=== PATIENT | female | born 2000 | race Caucasian/White ===

== ENCOUNTER 2023-10-10 08:00 | Outpatient (CLI) | payer OTHER ==
[2023-10-10 16:50] LABS: BILIRUBIN,URINE NEGATIVE (NEGATIVE); GLUCOSE, URINE (UA) NEGATIVE (NEGATIVE); KETONES,URINE (UA) TRACE mg/dL (NEGATIVE); LEUKOCYTE ESTERASE, URINE SMALL (NEGATIVE); NITRITE,URINE NEGATIVE (NEGATIVE); OCCULT BLOOD,URINE NEGATIVE (NEGATIVE); PH,URINE 6.5 PH (5.0-7.5); PROTEIN,URINE NEGATIVE (NEGATIVE); UROBILINOGEN,URINE 1 (NORMAL) E.U./dL (NORMAL)
[2023-10-10 17:04] LABS: CLARITY,URINE CLEAR (CLEAR)
[2023-10-10 17:13] LABS: RBC,URINE 0-5 /HPF (0-5)
[2023-10-10 17:14] LABS: BACTERIA,URINE Few /HPF (None Seen); SQUAMOUS EPITHELIAL CELL,UR MOD Squamous (<= Few)
== END 2023-10-10 23:59 | disposition home or self-care (01) ==
LOC: LAB 08:00
PROVIDERS: ATTEND Nurse Practitioner
DX: Z34.90 Encounter for supervision of normal pregnancy, unspecified, unspecified trimester (principal)
CPT/HCPCS: 81001; 87086

== ENCOUNTER 2023-10-20 19:13 | Outpatient (CLI) | payer OTHER ==
--- NOTE | 2023-10-21 07:50 | Ultrasound Report ---
PROCEDURE: OB First Trimester INDICATIONS: POSITIVE TEST OUTSIDE/PRIOR DATING DATA: Last menstrual period (LMP): 07/14/2023. LMP-based estimated date of delivery (BETTY): 04/19/2024. Estimated date of delivery (BETTY) from first dating scan: Today's exam. The below data below was generated using the ultrasound BETTY of 04/16/2024 TECHNIQUE: Real-time scanning was performed of the fetus, with image documentation and biometric measurements. Endovaginal scanning: Not performed. COMPARISON: None. FINDINGS: General: A single living intrauterine gestation is present. Presentation: Variable Placenta: Placental position is posterior, without previa. heart rate: 145 beats per minute. Maternal cervical canal: 3.5 cm long; normal length is 2.5 cm or more. biometrics: Biparietal diameter: 8.0 cm, 14 weeks 0 days, 51st percentile Head circumference: 2.72 cm, 14 weeks 6 days, 78th percentile Abdominal circumference: 10 cm, 14 weeks 5 days, 65th percentile Femur length: 1.4 cm, 14 weeks, 46th percentile Estimated gestational age from initial scan: 14 weeks 3 days Composite gestational age from present scan: 14 weeks 3 days Estimated weight and percentile: 94 g, 53rd percentile Measurement variability in biometric dating: +/- 10 days from 12-20 weeks gestation, +/- 2 weeks from 20-30 weeks gestation, +/- 3 weeks at 30 weeks gestation or more. Other: Not applicable. IMPRESSION: Single living intrauterine at 14 weeks 3 days, BETTY of 04/16/2024. Biometry as above. Estimated weight of 94 g, 53rd percentile. Reviewed by: Temo Salazar MD on 10/21/2023 7:49 AM [facility] Approved by: Temo Salazar MD on 10/21/2023 7:49 AM PST Station ID: [id number]
== END 2023-10-20 19:14 | disposition home or self-care (01) ==
LOC: DI 19:13
PROVIDERS: ATTEND Nurse Practitioner
DX: Z34.91 Encounter for supervision of normal pregnancy, unspecified, first trimester (principal)

== ENCOUNTER 2023-10-27 17:19 | Emergency (ER) | payer OTHER ==
[2023-10-27 17:56] LABS: BASOPHILS % (AUTO) 0.5 %; EOSINOPHILS # (AUTO) 0.1 10^3/uL (0.0-0.7); EOSINOPHILS % (AUTO) 0.8 %; HCT - HEMATOCRIT 29.7 % (37.0-47.0); HGB - HEMOGLOBIN 10.2 g/dL (12.0-16.0); LYMPHOCYTES # (AUTO) 1.8 10^3/uL (1.5-3.5); LYMPHOCYTES % (AUTO) 21.8 %; MEAN CORPUSCULAR HEMOGLOBIN 27.3 pg (27.0-31.0); MEAN CORPUSCULAR HGB CONC 34.3 g/dL (32.0-36.0); MEAN CORPUSCULAR VOLUME 79.6 fL (81.0-99.0); MEAN PLATELET VOLUME 8.5 fL (7.9-10.8); MONOCYTES # (AUTO) 0.5 10^3/uL (0.0-1.0); MONOCYTES % (AUTO) 6.3 %; NEUTROPHILS # (AUTO) 5.8 10^3/uL (1.5-6.6); NEUTROPHILS % (AUTO) 70.4 %; PLT - PLATELET COUNT 265 10^3/uL (130-450); RED BLOOD COUNT 3.73 10^6/uL (4.20-5.40); RED CELL DISTRIBUTION WIDTH 13.6 % (12.0-15.0); WHITE BLOOD COUNT 8.3 x10^3/uL (4.8-10.8)
[2023-10-27 18:03] LABS: ALBUMIN 3.6 g/dL (3.2-5.5); ALBUMIN/GLOBULIN RATIO 1.2 (1.0-2.2); BILIRUBIN,TOTAL 0.2 mg/dL (0.2-1.0); CALCIUM 9.3 mg/dL (8.5-10.3); CREATININE 0.5 mg/dL (0.6-1.3); POTASSIUM 3.4 mmol/L (3.5-4.5); TOTAL PROTEIN 6.7 g/dL (6.4-8.9)
--- NOTE | 2023-10-27 20:19 | Ultrasound Report ---
PROCEDURE: OB Limited INDICATIONS: Vaginal Bleeding OUTSIDE/PRIOR DATING DATA: Last menstrual period (LMP): 07/14/2023. LMP-based estimated date of delivery (BETTY): 04/19/2024. First dating scan (date and location): 10/20/2023. Estimated date of delivery (BETTY) from first dating scan: 04/16/2024. The below data below was generated using the ultrasound BETTY of 04/16/2024 TECHNIQUE: Real-time scanning was performed of the fetus, with image documentation. Endovaginal scanning: Not performed COMPARISON: OB ultrasound 10/20/2023 FINDINGS: A single living intrauterine gestation is present. Presentation: Variable Placenta: Placental position is anterior. Amniotic fluid index: Not evaluated. heart rate: 148 beats per minutes. Maternal cervical canal: 4.6 cm long; normal length is 2.5 cm or more. Estimated gestational age from initial scan: 15 weeks 3 days. IMPRESSION: Single live intrauterine is seen. heart rate is 148 bpm. Reviewed by: David Hugo MD on 10/27/2023 8:17 PM PST Approved by: David Hugo MD on 10/27/2023 8:17 PM PST Station ID: [id number]
--- NOTE | 2023-10-27 21:06 | ED Physician Documentation ---
PD HPI FEMALE - Stated complaint Stated Complaint: /BLEEDING - Chief complaint Chief Complaint: Abd Pain - History obtained from History obtained from: Patient - Additional information Additional information: 23-year-old female who is approximately 15 weeks presents with vaginal spotting. She noticed today while wiping. No bleeding in between. She has no dysuria urgency or frequency no abdominal pain or cramping. She has had a first trimester ultrasound which was normal. 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 She denied fever or chills, no flank pain, no nausea or vomiting. Review of Systems Constitutional: reports: Reviewed and negative Cardiac: reports: Reviewed and negative Respiratory: reports: Reviewed and negative GI: reports: Reviewed and negative : reports: Vaginal bleeding, Now EGA PD PAST MEDICAL HISTORY - Past Medical History Past Medical History: No - Past Surgical History Past Surgical History: No - Allergies Allergies/Adverse Reactions: Allergies Allergy/AdvReac Type Severity Reaction Status Date / Time No Known Drug Allergies Allergy Verified 10/27/23 17:28 - Social History Does the pt smoke?: No Smoking Status: Never smoker PD ED PE NORMAL - Vitals Vital signs reviewed: Yes - General General: Alert and oriented X 3, No acute distress, Well developed/nourished - HEENT HEENT: Atraumatic, Moist mucous membranes - Cardiac Cardiac: RRR, No murmur - Abdomen Abdomen: Normal bowel sounds, Soft, Non tender, Non distended - Back Back: No CVA TTP, No spinal TTP Results - Vitals Vitals: Vital Signs - 24 hr 10/27/23 10/27/23 10/27/23 17:25 19:28 21:00 Temperature 36.6 C 36.6 C Heart Rate 77 72 70 Respiratory 18 16 16 Rate Blood Pressure 110/54 L 112/60 110/62 O2 Saturation 99 100 100 Oxygen O2 Source Room air - Labs Labs: Laboratory Tests 10/27/23 10/27/23 10/27/23 17:38 17:38 17:40 WBC 8.3 RBC 3.73 L Hgb 10.2 L Hct 29.7 L MCV 79.6 L MCH 27.3 MCHC 34.3 RDW 13.6 Plt Count 265 MPV 8.5 Neut # (Auto) 5.8 Lymph # (Auto) 1.8 [place] # (Auto) 0.5 Eos # (Auto) 0.1 Baso # (Auto) 0.0 Absolute Nucleated RBC 0.00 Nucleated RBC % 0.0 Sodium 135 Potassium 3.4 L Chloride 105 Carbon Dioxide 25 Anion Gap 5.0 L BUN 5 L Creatinine 0.5 L Estimated GFR (MDRD) 152 Glucose 99 Calcium 9.3 Total Bilirubin 0.2 AST 12 ALT 7 L Alkaline Phosphatase 43 Total Protein 6.7 Albumin 3.6 Globulin 3.1 Albumin/Globulin Ratio 1.2 Lipase 32 Urine Color Urine Clarity Urine pH Ur Specific [place] Urine Protein Urine Glucose (UA) Urine Ketones Urine Occult Blood Urine Nitrite Urine Bilirubin Urine Urobilinogen Ur Leukocyte Esterase Urine RBC Urine WBC Ur Squamous Epith Cells Urine Bacteria Ur Microscopic Review Urine Culture Comments Blood Type A POSITIVE 10/27/23 20:52 WBC RBC Hgb Hct MCV MCH MCHC RDW Plt Count MPV Neut # (Auto) Lymph # (Auto) [place] # (Auto) Eos # (Auto) Baso # (Auto) Absolute Nucleated RBC Nucleated RBC % Sodium Potassium Chloride Carbon Dioxide Anion Gap BUN Creatinine Estimated GFR (MDRD) Glucose Calcium Total Bilirubin AST ALT Alkaline Phosphatase Total Protein Albumin Globulin Albumin/Globulin Ratio Lipase Urine Color YELLOW Urine Clarity CLEAR Urine pH 6.0 Ur Specific [place] 1.025 Urine Protein NEGATIVE Urine Glucose (UA) NEGATIVE Urine Ketones TRACE Urine Occult Blood NEGATIVE Urine Nitrite NEGATIVE Urine Bilirubin NEGATIVE Urine Urobilinogen 1 (NORMAL) Ur Leukocyte Esterase SMALL H Urine RBC None Seen Urine WBC 0-3 Ur Squamous Epith Cells FEW Squamous Urine Bacteria Rare Ur Microscopic Review INDICATED Urine Culture Comments INDICATED Blood Type - Rads (name of study) No standard instances Relevant Findings:: Final report received PD Medical Decision Making - ED course Complexity details: reviewed results, re-evaluated patient, considered christopher hector d/w patient, d/w family ED course: 23-year-old female presents with vaginal spotting in the second trimester of . Patient has had a normal thus far, presents with vaginal spotting today, no abdominal pain or cramping. Differentials considered included miscarriage, subchorionic hemorrhage, UTI, or other causes of second trimester bleeding. Patient is well-appearing here on physical exam, hemodynamically stable and afebrile with a soft abdomen. I ultrasound was done prior to my examination of the patient ultrasound reveals a single live IUP, no concerning findings on the ultrasound. Her labs are stable, she is mildly anemic and otherwise reassuring labs. Urinalysis is not suggestive of infection and therefore patient to be discharged home with recommendation to follow-up with OB outpatient. I discussed the potential causes of second trimester bleeding including intercourse, small subchorionic hemorrhage, impending miscarriage. I advised patient of return precautions andAdvise follow-up with PCP and OB in the next week or 2. Departure - Departure Disposition: 01 Home, Self Care Clinical Impression: Vaginal bleeding before 22 weeks gestation Condition: Good Instructions: Preg 2nd Trimester Comments: Your workup today was stable. Please call your OB tomorrow to schedule a follow- up appointment. If you have increasing bleeding, return to the ER otherwise continue your routine care. Forms: PCP List Discharge Date/Time: 10/27/23 21:47
[2023-10-27 21:08] LABS: BILIRUBIN,URINE NEGATIVE (NEGATIVE); GLUCOSE, URINE (UA) NEGATIVE (NEGATIVE); KETONES,URINE (UA) TRACE mg/dL (NEGATIVE); LEUKOCYTE ESTERASE, URINE SMALL (NEGATIVE); NITRITE,URINE NEGATIVE (NEGATIVE); OCCULT BLOOD,URINE NEGATIVE (NEGATIVE); PROTEIN,URINE NEGATIVE (NEGATIVE); UROBILINOGEN,URINE 1 (NORMAL) E.U./dL (NORMAL)
[2023-10-27 21:09] VITALS: BP 110/62; O2SAT 100
[2023-10-27 21:35] LABS: CLARITY,URINE CLEAR (CLEAR)
[2023-10-27 21:38] LABS: BACTERIA,URINE Rare /HPF (None Seen); RBC,URINE None Seen /HPF (0-5); SQUAMOUS EPITHELIAL CELL,UR FEW Squamous (<= Few); WBC,URINE 0-3 /HPF (0-5)
== END 2023-10-27 21:47 | disposition home or self-care (01) ==
LOC: ED 17:19
DX: O20.9 Hemorrhage in early pregnancy, unspecified (principal); Z3A.15 15 weeks gestation of pregnancy
CPT/HCPCS: 36415; 80053; 81001; 81003; 83690; 85025; 86900; 86901; 87086; 99283; 99284

== ENCOUNTER 2023-11-08 08:00 | Outpatient (CLI) | payer OTHER ==
[2023-11-09 12:40] LABS: CHLAMYDIA TRACHOMATIS DNA NEGATIVE (NEGATIVE); NEISSERIA GONORRHOEAE DNA NEGATIVE (NEGATIVE); TRICHOMONAS VAGINALIS DNA NEGATIVE (NEGATIVE)
== END 2023-11-08 23:59 | disposition home or self-care (01) ==
LOC: LAB.WC 08:00
PROVIDERS: ATTEND Obstetrics & Gynecology
DX: Z11.3 Encounter for screening for infections with a predominantly sexual mode of transmission (principal)
CPT/HCPCS: 87491; 87591; 87661

== ENCOUNTER 2023-12-01 14:41 | Outpatient (CLI) | payer OTHER ==
[2023-12-01 15:29] LABS: BASOPHILS % (AUTO) 0.2 %; EOSINOPHILS # (AUTO) 0.1 10^3/uL (0.0-0.7); EOSINOPHILS % (AUTO) 0.6 %; HCT - HEMATOCRIT 26.3 % (37.0-47.0); HGB - HEMOGLOBIN 8.7 g/dL (12.0-16.0); LYMPHOCYTES # (AUTO) 1.7 10^3/uL (1.5-3.5); LYMPHOCYTES % (AUTO) 19.1 %; MEAN CORPUSCULAR HEMOGLOBIN 28.2 pg (27.0-31.0); MEAN CORPUSCULAR HGB CONC 33.1 g/dL (32.0-36.0); MEAN CORPUSCULAR VOLUME 85.4 fL (81.0-99.0); MEAN PLATELET VOLUME 8.4 fL (7.9-10.8); MONOCYTES # (AUTO) 0.5 10^3/uL (0.0-1.0); MONOCYTES % (AUTO) 5.2 %; NEUTROPHILS # (AUTO) 6.7 10^3/uL (1.5-6.6); NEUTROPHILS % (AUTO) 74.3 %; PLT - PLATELET COUNT 248 10^3/uL (130-450); RED BLOOD COUNT 3.08 10^6/uL (4.20-5.40); RED CELL DISTRIBUTION WIDTH 14.6 % (12.0-15.0); WHITE BLOOD COUNT 9.1 x10^3/uL (4.8-10.8)
[2023-12-01 16:05] LABS: FERRITIN 16.2 ng/mL (11.0-306.8)
[2023-12-02 02:11] LABS: HBsAG SCREEN Negative (Negative)
[2023-12-02 05:15] LABS: HCV AB Non Reactive (Non Reactive); HIV SCREEN 4TH GENERATION Non Reactive (Non Reactive); RPR Non Reactive (Non Reactive)
[2023-12-02 09:11] LABS: VARICELLA-ZOSTER AB IGG 818 index (Immune >165)
== END 2023-12-01 14:42 | disposition home or self-care (01) ==
LOC: LAB 14:41
PROVIDERS: ATTEND Nurse Practitioner
DX: O99.012 Anemia complicating pregnancy, second trimester (principal)
CPT/HCPCS: 36415; 81599; 82728; 83020; 83540; 85025; 85027; 86592; 86762; 86787; 86803; 86850; 86900; 86901; 87340; 87389

== ENCOUNTER 2023-12-12 08:16 | Outpatient (CLI) | payer OTHER ==
--- NOTE | 2023-12-12 14:00 | Ultrasound Report ---
PROCEDURE: OB Anatomy Scan INDICATIONS: SUPERVISION OF OUTSIDE/PRIOR DATING DATA: Last menstrual period (LMP): 07/14/2023. LMP-based estimated date of delivery (BETTY): 04/19/2024. First dating scan (date and location): 10/20/2023. Estimated date of delivery (BETTY) from first dating scan: 04/16/2024. The below data below was generated using the ultrasound BETTY of 04/16/2024 TECHNIQUE: Real-time scanning was performed of the fetus, with image documentation and biometric measurements. Endovaginal scanning: Not performed. COMPARISON: OB ultrasound 10/27/2023 and 10/20/2023 FINDINGS: General: A single living intrauterine gestation is present. Presentation: Vertex Placenta: Placental position is posterior, without previa. Amniotic fluid index: 17.3 cm, within normal limits for gestational age. heart rate: 135 beats per minute. Maternal cervical canal: 3.8 cm long; normal length is 2.5 cm or more. biometrics: Biparietal diameter: 5.4 cm, 22 weeks 3 days, 78th percentile Head circumference: 19.3 cm, 21 weeks 4 days, 40th percentile Abdominal circumference: 16.8 cm, 21 weeks 6 days, 51st percentile Femur length: 2.5 cm, 20 weeks 6 days, 18th percentile Estimated gestational age from initial scan: 21 weeks 4 days Composite gestational age from present scan: 21 weeks 5 days Estimated weight and percentile: 426 g, 39th percentile Measurement variability in biometric dating: +/- 10 days from 12-20 weeks gestation, +/- 2 weeks from 20-30 weeks gestation, +/- 3 weeks at 30 weeks gestation or later. Anatomic survey: Neuro: Ventricles are normal at less than 10 mm. Cisterna magna is normal at 3-11 mm. Cerebellum i s normal in size and morphology. Nuchal skin fold: Not evaluated due to gestational age. Face: Nose and lips, facial profile are normal. Spine: No evidence for spina bifida. Heart: 4-chambered heart is present, with normal ventricular outflow tracts. Diaphragm: Diaphragm is intact. Stomach: Left-sided stomach is present. Kidneys: No hydronephrosis. Normal is less than 5 mm in 2nd trimester, less than 7 mm in 3rd trimester. Cord: 3 vessel cord has orthotopic insertion. Bladder: Normal in size. Extremities: All 4 extremities are visualized. IMPRESSION: 1.Single live intrauterine with appropriate interval growth. 2. anatomic survey is within normal limits. Reviewed by: David Hugo MD on 12/12/2023 1:58 PM PST Approved by: David Hugo MD on 12/12/2023 1:58 PM PST Station ID: [id number]
== END 2023-12-12 08:17 | disposition home or self-care (01) ==
LOC: DI 08:16
PROVIDERS: ATTEND Obstetrics & Gynecology
DX: Z34.02 Encounter for supervision of normal first pregnancy, second trimester (principal)

== ENCOUNTER 2024-01-29 15:30 | Outpatient (CLI) | payer OTHER ==
[2024-01-29 15:54] LABS: HCT - HEMATOCRIT 28.7 % (37.0-47.0); HGB - HEMOGLOBIN 9.3 g/dL (12.0-16.0); MEAN CORPUSCULAR HEMOGLOBIN 28.4 pg (27.0-31.0); MEAN CORPUSCULAR HGB CONC 32.4 g/dL (32.0-36.0); MEAN CORPUSCULAR VOLUME 87.8 fL (81.0-99.0); MEAN PLATELET VOLUME 8.3 fL (7.9-10.8); RED BLOOD COUNT 3.27 10^6/uL (4.20-5.40); RED CELL DISTRIBUTION WIDTH 13.1 % (12.0-15.0); WHITE BLOOD COUNT 9.3 x10^3/uL (4.8-10.8)
== END 2024-01-29 15:31 | disposition home or self-care (01) ==
LOC: LAB 15:30
PROVIDERS: ATTEND Obstetrics & Gynecology
DX: O99.012 Anemia complicating pregnancy, second trimester (principal); Z3A.28 28 weeks gestation of pregnancy
CPT/HCPCS: 36415; 81511; 81599; 82728; 85027; 86850

== ENCOUNTER 2024-03-01 10:15 | Outpatient (CLI) | payer OTHER | END 2024-03-01 10:16 | disposition home or self-care (01) | LOC: LAB.N 10:15 | PROVIDERS: ATTEND Obstetrics & Gynecology | DX: Z34.90 Encounter for supervision of normal pregnancy, unspecified, unspecified trimester (principal) | CPT/HCPCS: 36415; 82950 ==

== ENCOUNTER 2024-07-06 15:57 | Outpatient (CLI) | payer OTHER | END 2024-07-06 23:59 | disposition EMS.NT | LOC: EMS 15:57 | DX: R53.81 Other malaise (principal); F32.A Depression, unspecified ==

== ENCOUNTER 2024-07-06 20:45 | Outpatient (CLI) | payer OTHER | END 2024-07-06 23:59 | disposition critical access hospital (66) | LOC: EMS 20:45 | DX: G43.909 Migraine, unspecified, not intractable, without status migrainosus (principal) | CPT/HCPCS: A0425; A0429 ==

== ENCOUNTER 2024-07-06 21:04 | Emergency (ER) | payer OTHER ==
[2024-07-06 21:13] VITALS: O2SAT 98
--- NOTE | 2024-07-06 21:20 | ED Physician Documentation ---
PD HPI HEADACHE - Stated complaint Stated Complaint: POE - Chief complaint Chief Complaint: Neuro - History obtained from History obtained from: Patient - Additional information Additional information: HPI from patient. Patient chief complaint is generalized, mild headache. She also notes loss of appetite and mild dyspnea on exertion. She complains of nausea but no vomiting. The symptoms were of gradual onset since this morning. There is no inciting event including no injury. Denies history of similar symptoms. She is tolerating p.o. When asked if she took anything for headache, she says she took Zoloft for her headache. 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 After this brief discussion, I am still unclear if she understands that Zoloft is not a headache medication. I ask her if she is had fevers, and she says that she has but she says she has not been taking her temperature and thus these are subjective.She denies cough, abdominal pain, vomiting. She has her prescription medications with her which include a prescription for ibuprofen 600 mg tablets; she tells me she has not taken this today. Review of Systems Constitutional: denies: Fever, Chills, Sweats Respiratory: reports: Dyspnea. denies: Cough GI: reports: Nausea. denies: Abdominal Pain, Vomiting : denies: Dysuria, Frequency Neurologic: reports: Headache. denies: Generalized weakness, Focal weakness, Numbness PD PAST MEDICAL HISTORY - Past Surgical History Past Surgical History: No - Allergies Allergies/Adverse Reactions: Allergies Allergy/AdvReac Type Severity Reaction Status Date / Time No Known Drug Allergies Allergy Verified 10/27/23 17:28 - Social History Does the pt smoke?: No Smoking Status: Never smoker PD ED PE NORMAL - Vitals Vital signs reviewed: Yes - General General: Alert and oriented X 3, No acute distress, Well developed/nourished - HEENT HEENT: PERRL, EOMI, Moist mucous membranes - Neck Neck: Supple, no meningeal sign - Cardiac Cardiac: RRR, No murmur - Respiratory Respiratory: No respiratory distress, Clear bilaterally - Abdomen Abdomen: Soft, Non tender Results - Vitals Vitals: Oxygen O2 Source Room air - Labs Labs: Laboratory Tests 09/07/24 21:42 Nasal Adenovirus (PCR) NOT DETECTED Nasal B. parapertussis DNA (PCR) NOT DETECTED Nasal Coronavir 229E PCR NOT DETECTED Nasal Coronavir HKU1 PCR NOT DETECTED Nasal Coronavir NL63 PCR NOT DETECTED Nasal Coronavir OC43 PCR NOT DETECTED Nasal Enterovir/Rhinovir PCR NOT DETECTED Nasal Influenza B PCR NOT DETECTED Nasal Influenza A PCR NOT DETECTED Nasal Parainfluen 1 PCR NOT DETECTED Nasal Parainfluen 2 PCR NOT DETECTED Nasal Parainfluen 3 PCR NOT DETECTED Nasal Parainfluen 4 PCR NOT DETECTED Nasal RSV (PCR) NOT DETECTED Nasal B.pertussis DNA PCR NOT DETECTED Nasal C.pneumoniae (PCR) NOT DETECTED Rodrigue Human Metapneumo PCR NOT DETECTED Nasal M.pneumoniae (PCR) NOT DETECTED Nasal SARS-CoV-2 (PCR) NOT DETECTED PD Medical Decision Making - ED course Complexity details: considered differential, d/w patient ED course: This patient is in NAD. Unremarkable physical exam and chief complaint of mild generalized headache with decreased appetite does not lend itself to any particularly specific nor concerning diagnosis/diagnoses. No elements of H+P to suggest infectious process except perhaps viral syndrome (and thus respiratory PCR panel ordered). There were no elements of H&P to suggest UTI, pyelonephritis, meningitis, encephalitis, migraine headache, pneumonia, intra-abdominal/pelvic process. She is given 4 mg TL Zofran, 60 mg p.o. ibuprofen. Results of the respiratory panel discussed with patient (all negative for the viruses tested on this panel). Etiology of her headache is not apparent this time. I advised her to contact her primary care provider on Monday when the office is next open to arrange for the next available appointment for follow-up/reevaluation. Departure - Departure Disposition: Home, Self Care Clinical Impression: Headache Qualifiers: Headache type: unspecified Headache chronicity pattern: acute headache Intractability: not intractable Qualified Code(s): R51.9 - Headache, unspecified Condition: Good Instructions: ED Cephalgia Unspecified Follow-Up: JOBY AMAYA NP [Primary Care Provider] - Comments: The nasal swab was negative for a number of different viruses that we test for on this panel, including COVID, influenza, RSV, and several other viruses. The cause of your symptoms is not apparent at this time. Further testing emergency department is not indicated at this time but consider following up with your primary care provider this coming week if your symptoms persist. Discharge Date/Time: 07/06/24 22:51
[2024-07-06] MEDS: IBUPROFEN 600 MG TABLET PO STA (21:45)
[2024-07-06] MEDS: ONDANSETRON ODT 4 MG TABLET TL STA (21:45)
[2024-07-06 22:41] LABS: B. PARAPERTUSSIS- RESP PCR PAN NOT DETECTED; B. PERTUSSIS- RESP PCR PANEL NOT DETECTED; C. PNEUMONIAE- RESP PCR PANEL NOT DETECTED; CORONAVIRUS 229E-RESP PCR NOT DETECTED; CORONAVIRUS HKU1-RESP PCR NOT DETECTED; CORONAVIRUS NL63-RESP PCR NOT DETECTED; CORONAVIRUS OC43-RESP PCR NOT DETECTED; HUMAN METAPNEUMOVIRUS NOT DETECTED; INFLUENZA A- RESP PCR PANEL NOT DETECTED; INFLUENZA B - RESP PCR PANEL NOT DETECTED; M. PNEUMONIAE- RESP PCR PANEL NOT DETECTED; PARAINFLUENZA VIRUS 1 NOT DETECTED; PARAINFLUENZA VIRUS 2 NOT DETECTED; PARAINFLUENZA VIRUS 3 NOT DETECTED; PARAINFLUENZA VIRUS 4 NOT DETECTED; RHINOVIRUS/ENTEROVIRUS NOT DETECTED; RSV- RESP PCR PANEL NOT DETECTED; SARS-CoV-2 -RESP PCR PANEL NOT DETECTED
[2024-07-06 22:57] VITALS: BP 124/72
== END 2024-07-06 22:51 | disposition home or self-care (01) ==
LOC: ED 21:04
DX: R51.9 Headache, unspecified (principal)
CPT/HCPCS: 87633; 99283; A9270; Q0162

== ENCOUNTER 2024-07-22 22:03 | Outpatient (CLI) | payer OTHER | END 2024-07-22 22:04 | disposition critical access hospital (66) | LOC: EMS 22:03 | DX: R45.851 Suicidal ideations (principal); R07.81 Pleurodynia; R07.0 Pain in throat; R51.9 Headache, unspecified; M54.9 Dorsalgia, unspecified; R07.89 Other chest pain; Z91.81 History of falling | CPT/HCPCS: A0425; A0429 ==

== ENCOUNTER 2024-07-22 22:07 | Emergency (ER) | payer OTHER ==
[2024-07-22 22:18] VITALS: O2SAT 100
[2024-07-22 22:57] LABS: MAGNESIUM 1.8 mg/dL (1.7-2.3)
[2024-07-22 23:02] LABS: BASOPHILS % (AUTO) 0.6 %; EOSINOPHILS % (AUTO) 0.5 %; HCT - HEMATOCRIT 38.6 % (37.0-47.0); HGB - HEMOGLOBIN 12.6 g/dL (12.0-16.0); LYMPHOCYTES # (AUTO) 2.2 10^3/uL (1.5-3.5); LYMPHOCYTES % (AUTO) 33.6 %; MEAN CORPUSCULAR HGB CONC 32.6 g/dL (32.0-36.0); MEAN CORPUSCULAR VOLUME 82.7 fL (81.0-99.0); MEAN PLATELET VOLUME 8.5 fL (7.9-10.8); MONOCYTES # (AUTO) 0.7 10^3/uL (0.0-1.0); MONOCYTES % (AUTO) 10.5 %; NEUTROPHILS # (AUTO) 3.6 10^3/uL (1.5-6.6); NEUTROPHILS % (AUTO) 54.6 %; PLT - PLATELET COUNT 410 10^3/uL (130-450); RED BLOOD COUNT 4.67 10^6/uL (4.20-5.40); RED CELL DISTRIBUTION WIDTH 13.7 % (12.0-15.0); WHITE BLOOD COUNT 6.6 x10^3/uL (4.8-10.8)
[2024-07-22 23:03] LABS: ACETAMINOPHEN 0.1 ug/mL; ALBUMIN 4.3 g/dL (3.2-5.5); ALBUMIN/GLOBULIN RATIO 1.5 (1.0-2.2); ALKALINE PHOSPHATASE 58 IU/L (42-121); ALT ALANINE AMINOTRANSFERASE 22 IU/L (10-60); AST ASPARTATE AMINOTRANSFERASE 16 IU/L (10-42); BILIRUBIN,TOTAL 0.4 mg/dL (0.2-1.0); BUN - BLOOD UREA NITROGEN 5 mg/dL (6-20); CALCIUM 9.6 mg/dL (8.5-10.3); CARBON DIOXIDE - CO2 23 mmol/L (21-32); CHLORIDE 102 mmol/L (101-111); CK- CREATINE KINASE 47 IU/L (30-223); CREATININE 0.8 mg/dL (0.6-1.3); ETOH - ETHANOL < 10.0 mg/dL; GFR - MDRD 87 (>89); GLUCOSE 83 mg/dL (74-104); LIPASE 19 U/L (11-82); SODIUM 138 mmol/L (135-145); TOTAL PROTEIN 7.2 g/dL (6.4-8.9)
[2024-07-22] MEDS: ONDANSETRON ODT 4 MG TABLET TL STA (23:03)
[2024-07-22 23:14] LABS: THYROID STIMULATING HORMONE 1.96 uIU/mL (0.34-5.60)
--- NOTE | 2024-07-22 23:14 | ED Physician Documentation ---
PD HPI MHE - Stated complaint Stated Complaint: MHE, RIB AND CP - Chief complaint Chief Complaint: MHE - History obtained from History obtained from: Patient - Additional information Additional information: Patient was reportedly arrested earlier today "on assault charges after attempting to poison her with her medications" (per the [facility] breathing of intervention form). On my HPI, patient tells me she is currently in the emergency department due to "I am having paranoid thoughts" (per patient). The patient gave April 25 of this year. Since then, she has had episodes where she feels that her is a danger to both the baby as well as herself (the patient). 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 I spoke with the evaluating practitioner who filled out this form (Alice Marcano, [facility], DCR); she tells me that the patient was treated in the inpatient setting at [facility] last month for similar issues. PD PAST MEDICAL HISTORY - Past Medical History Past Medical History: Yes Cardiovascular: Hypertension Psych: Depression, Anxiety - Past Surgical History Past Surgical History: No - Allergies Allergies/Adverse Reactions: Allergies Allergy/AdvReac Type Severity Reaction Status Date / Time aripiprazole [From Abilify] Allergy Hives Verified 07/22/24 22:27 nut - unspecified Allergy Anaphylaxis Verified 07/22/24 22:26 shellfish derived Allergy Anaphylaxis Verified 07/22/24 22:27 - Social History Does the pt smoke?: No Smoking Status: Never smoker - POLST Patient has POLST: No PD ED PE NORMAL - Vitals Vital signs reviewed: Yes - General General: Alert and oriented X 3, Well developed/nourished, Other (speaks very quietly, often needs to repeat her answers due to difficulty hearing her low- volume answers) - HEENT HEENT: PERRL, EOMI - Cardiac Cardiac: RRR, No murmur - Respiratory Respiratory: No respiratory distress, Clear bilaterally - Abdomen Abdomen: Soft, Non tender - Neuro Neuro: Alert and oriented X 3, Normal speech Eye Opening: Spontaneous Motor: Obeys Commands Verbal: Oriented GCS Score: 15 Results - Vitals Vitals: Vital Signs - 24 hr 07/22/24 07/22/24 07/23/24 22:16 22:48 02:59 Temperature 36.6 C 36.6 C 36.5 C Heart Rate 77 77 72 Respiratory 16 16 16 Rate Blood Pressure 131/83 H 131/83 H 146/88 H O2 Saturation 100 100 100 Oxygen O2 Source Room air - Labs Labs: Laboratory Tests 07/22/24 07/22/24 07/22/24 22:30 22:41 22:41 WBC 6.6 RBC 4.67 Hgb 12.6 Hct 38.6 MCV 82.7 MCH 27.0 MCHC 32.6 RDW 13.7 Plt Count 410 MPV 8.5 Neut # (Auto) 3.6 Lymph # (Auto) 2.2 [place] # (Auto) 0.7 Eos # (Auto) 0.0 Baso # (Auto) 0.0 Absolute Nucleated RBC 0.00 Nucleated RBC % 0.0 Sodium 138 Potassium 3.0 L Chloride 102 Carbon Dioxide 23 Anion Gap 13.0 BUN 5 L Creatinine 0.8 Estimated GFR (MDRD) 87 L Glucose 83 Calcium 9.6 Magnesium 1.8 Total Bilirubin 0.4 AST 16 ALT 22 Alkaline Phosphatase 58 Total Creatine Kinase 47 Total Protein 7.2 Albumin 4.3 Globulin 2.9 Albumin/Globulin Ratio 1.5 Lipase 19 TSH 1.96 Urine Color Urine Clarity Urine pH Ur Specific [place] Urine Protein Urine Glucose (UA) Urine Ketones Urine Occult Blood Urine Nitrite Urine Bilirubin Urine Urobilinogen Ur Leukocyte Esterase Ur Microscopic Review Urine Culture Comments Urine HCG, Qual Salicylates < 1.5 Urine Opiates Screen Ur Buprenorphine Scrn Ur Oxycodone Screen Urine Methadone Screen Acetaminophen 0.1 Ur Barbiturates Screen Ur Tricyclics Screen Ur Phencyclidine Scrn Ur Amphetamine Screen U Methamphetamines Scrn U Benzodiazepines Scrn Urine Cocaine Screen U Cannabinoids Screen Ur Drug Screen Comment Ethyl Alcohol < 10.0 SARS-CoV-2 (PCR) NOT DETECTED 07/22/24 23:15 WBC RBC Hgb Hct MCV MCH MCHC RDW Plt Count MPV Neut # (Auto) Lymph # (Auto) [place] # (Auto) Eos # (Auto) Baso # (Auto) Absolute Nucleated RBC Nucleated RBC % Sodium Potassium Chloride Carbon Dioxide Anion Gap BUN Creatinine Estimated GFR (MDRD) Glucose Calcium Magnesium Total Bilirubin AST ALT Alkaline Phosphatase Total Creatine Kinase Total Protein Albumin Globulin Albumin/Globulin Ratio Lipase TSH Urine Color YELLOW Urine Clarity CLEAR Urine pH 6.0 Ur Specific [place] 1.020 Urine Protein NEGATIVE Urine Glucose (UA) NEGATIVE Urine Ketones 40 H Urine Occult Blood NEGATIVE Urine Nitrite NEGATIVE Urine Bilirubin SMALL H Urine Urobilinogen 0.2 (NORMAL) Ur Leukocyte Esterase NEGATIVE Ur Microscopic Review NOT INDICATED Urine Culture Comments NOT INDICATED Urine HCG, Qual NEGATIVE Salicylates Urine Opiates Screen NEGATIVE Ur Buprenorphine Scrn NEGATIVE Ur Oxycodone Screen NEGATIVE Urine Methadone Screen NEGATIVE Acetaminophen Ur Barbiturates Screen NEGATIVE Ur Tricyclics Screen NEGATIVE Ur Phencyclidine Scrn NEGATIVE Ur Amphetamine Screen NEGATIVE U Methamphetamines Scrn NEGATIVE U Benzodiazepines Scrn NEGATIVE Urine Cocaine Screen NEGATIVE U Cannabinoids Screen NEGATIVE Ur Drug Screen Comment CUTOFF CONC BELOW: Ethyl Alcohol SARS-CoV-2 (PCR) PD Medical Decision Making - ED course Complexity details: reviewed results, re-evaluated patient, considered differential, d/w patient ED course: No concerning nor diagnostic findings on tonight's testing. Normal CBC. There is mild hypokalemia (K 3.0), for which 25 meq oral potassium bicarbonate is ordered (patient subsequently refused to take this). There are no detectable salicylates, acetaminophen, ethanol on serum testing. Urine drug screen is negative for the substances tested on our panel. This patient is medically cleared for inpatient mental health treatment. Transferred to [facility] Departure - Departure Disposition: 65 Psych Hosp/Unit DC/Xfer Clinical Impression: Paranoid delusion Condition: Good Forms: PCP List Discharge Date/Time: 07/23/24 03:48
[2024-07-22 23:23] LABS: BILIRUBIN,URINE SMALL (NEGATIVE); GLUCOSE, URINE (UA) NEGATIVE (NEGATIVE); KETONES,URINE (UA) 40 mg/dL (NEGATIVE); LEUKOCYTE ESTERASE, URINE NEGATIVE (NEGATIVE); NITRITE,URINE NEGATIVE (NEGATIVE); OCCULT BLOOD,URINE NEGATIVE (NEGATIVE); PROTEIN,URINE NEGATIVE (NEGATIVE); UROBILINOGEN,URINE 0.2 (NORMAL) E.U./dL (NORMAL)
[2024-07-22 23:24] LABS: CLARITY,URINE CLEAR (CLEAR)
[2024-07-22 23:25] LABS: SALICYLATE < 1.5 mg/dL
[2024-07-22 23:26] LABS: HCG UR QUAL NEGATIVE
[2024-07-22 23:37] LABS: AMPHETAMINE SCREEN,URINE NEGATIVE (NEGATIVE); BARBITURATE SCREEN,UR NEGATIVE (NEGATIVE); BENZODIAZEPINES SCREEN, URINE NEGATIVE (NEGATIVE); BUPRENORPHINE SCREEN, URINE NEGATIVE (NEGATIVE); COCAINE SCREEN URINE NEGATIVE (NEGATIVE); METHADONE SCREEN, URINE NEGATIVE (NEGATIVE); METHAMPHETAMINES SCREEN, URINE NEGATIVE (NEGATIVE); OPIATE SCREEN, URINE NEGATIVE (NEGATIVE); OXYCODONE SCREEN, URINE NEGATIVE (NEGATIVE); THC CANNABINOID SCREEN, URINE NEGATIVE (NEGATIVE); TRICYCLIC ANTIDEPRESSANT,URINE NEGATIVE (NEGATIVE)
[2024-07-23] MEDS: POTASSIUM BICARB 25 MEQ TABLET PO STA (00:24)
[2024-07-23] MEDS ORDERED: LORazepam 0.5 MG TABLET PO STA (00:36)
[2024-07-23 03:18] VITALS: BP 146/88
== END 2024-07-23 03:48 ==
LOC: EDUNIT# → ED 22:07
DX: F22 Delusional disorders (principal); I10 Essential (primary) hypertension
CPT/HCPCS: 36415; 80053; 80143; 80179; 80306; 81003; 81025; 82077; 82550; 83690; 83735; 84443; 85025; 87635; 99285; Q0162; 81001; 87086